=== PATIENT | female | born 1990 | race Caucasian/White ===

== ENCOUNTER 2023-07-26 10:34 | Emergency (ER) | payer BC, OTHER ==
[2023-07-26 10:46] VITALS: BP 115/72; PULSE 59; RESP 18; TEMP 98; BMI 31.8
[2023-07-26] MEDS ORDERED: FAMOTIDINE 10 MG TABLET PO ONE (13:12)
[2023-07-26] MEDS ORDERED: FAMOTIDINE 20 MG TABLET ONE (13:14)
[2023-07-26] MEDS ORDERED: ONDANSETRON *ODT* 4 MG TABLET ONE (13:14)
[2023-07-26] MEDS: ONDANSETRON *ODT* 4 MG TABLET SL ONE (13:17)
[2023-07-26] MEDS: FAMOTIDINE 10 MG TABLET PO ONE (13:19)
[2023-07-26] MEDS ORDERED: ACETAMINOPHEN INJECTION 100 ML IVPB ONE (14:09)
[2023-07-27] MEDS ORDERED: FAMOTIDINE 20 MG/2.5 ML ORAL LIQUID PO ONE (13:16)
== END 2023-07-26 14:05 | disposition home or self-care (01) ==
LOC: JER 10:34
DX: R11.2 Nausea with vomiting, unspecified (principal); R19.7 Diarrhea, unspecified
CPT/HCPCS: 84703; 99283-25; Q0162